=== PATIENT | female | born 1970 | race Caucasian/White ===

== ENCOUNTER 2020-04-05 09:37 | Inpatient (IN) | payer OTHER, SELFPAY ==
[~2020-04-05] VITALS: Ht 157.5 cm; Wt 89.4 kg
[2020-04-05 09:37] VITALS: Ht 157.5 cm; Wt 89.4 kg
--- NOTE | 2020-04-05 10:03 | NUR ---
PT BIB SELF C/C BODY ACHES COUGH ABD PAIN WITH N/V STS CRAMPING ALL OVER AWAITING FOR DR RICK PAINTER
--- NOTE | 2020-04-05 10:21 | NUR ---
DR LEDEZMA AT BEDSIDE TO [facility]
--- NOTE | 2020-04-05 10:22 | NUR ---
PLEASE ENTER FULL NAMES OF BIOMEDICAL MANAGER/RN Patient data collected by (BIOMEDICAL MANAGER): ADONIS MITCHELL Assessment reviewed and completed by (RN): SANJUANA VÁSQUEZ
--- NOTE | 2020-04-05 10:47 | NUR ---
XRAY AT BEDSIDE
[2020-04-05 11:14] LABS: CALCIUM 9.2 mg/dL (8.5-10.1); CARBON DIOXIDE 27.9 mmol/L (21-32); CHLORIDE SERUM 104 mmol/L (98-107); CREATININE SERUM 0.9 mg/dL (0.6-1.0); GFR1 > 60 mL/min; GLUCOSE SERUM 92 mg/dL (74-106); POTASSIUM SERUM 3.7 mmol/L (3.5-5.1); SODIUM SERUM 142 mmol/L (136-145)
[2020-04-05 11:17] LABS: ALBUMIN 3.8 g/dL (3.4-5.0); ALKALINE PHOSPHATASE 110 U/L (46-116); ALT/SGPT 31 U/L (14-59); AST/SGOT 25 U/L (15-37); BILIRUBIN TOTAL 0.62 mg/dL (0.20-1.00); C REACTIVE PROTEIN 3.8 mg/dL (<=0.9); LACTIC DEHYDROGENASE (LDH) 228 U/L (100-190)
[2020-04-05 11:18] LABS: TOTAL PROTEIN, SERUM 8.5 g/dL (6.4-8.2)
[2020-04-05] MEDS ORDERED: HORIZANT300 MG PO (12:04)
[2020-04-05] MEDS ORDERED: ROBAXIN-750750 MG PO (12:04)
[2020-04-05 12:15] LABS: UA SPECIFIC GRAVITY >=1.030 (1.005-1.035); microscopic required? YES; urine erythrocyte NEGATIVE (NEGATIVE)
[2020-04-05 12:33] LABS: PLATELET COUNT 284 x10^3mcL (130-400)
[2020-04-05 12:34] LABS: BASOPHIL % 0.3 % (0-2)
[2020-04-05 13:26] LABS: MAGNESIUM 2.1 mg/dL (1.8-2.4)
[2020-04-05 13:27] LABS: CHOLESTEROL/HDL RATIO 2.6
[2020-04-05 13:30] LABS: FREE T4 0.94 ng/dL (0.76-1.46); T3 TOTAL 0.96 ng/mL; T4(THYROXINE) 7.1 ug/dL (4.7-13.3)
--- NOTE | 2020-04-05 14:10 | NUR ---
PT ADMIT TO TELE ROOM 203B GAVE REPORT TO DAX
[2020-04-05 16:59] VITALS: BP 115/82
--- NOTE | 2020-04-05 19:29 | NUR ---
DID NOT RECEIVE ABX FROM PHARMACY. CALLED 3[facility] AND ALERTED CHARGE NURSE, WHO ALSO CALLED. ADMINISTRATION TIME WAS CHANGED BY PHARMACY TO 2100. WILL BE ADMINISTERED BY NIGHT NURSE. PT WAS IN PAIN 7/10 (HEADACHE) AND WAS GIVEN TYLENOL. TEMP WAS ALSO 99.7. TYLENOL RELIEVED BOTH CONDITIONS. PT DENIED PAIN ON REASSESSMENT. IV EQUIPMENT WITH FLUIDS WERE SET UP FOR IV ABX. FAMILY MEMBER DROPPED OF PHONE POULTRY RAISER AND PERSONAL ITEMS, WHICH WERE GIVEN TO PT. PT CURRENTLY COMFORTABLE. ON RA WITH 96% SAO2. NO ACUTE DISTRESS NOTED. DRY COUGH STILL PRESENT, BUT REPORTED BY PT THAT IT HAD IMPROVED AFTER SOME REST. COVID-19 TEST WAS ADMINISTERED AND DELIVERED TO LAB. SAFETY PRECAUTIONS IN PLACE. ENDORSED TO NIGHT NURSE.
--- NOTE | 2020-04-05 19:41 | NUR ---
CALLED PHARMACY ABOUT THE ZITHROMAX AND ROCEPHIN. PHARMACY WILL RE-TIME MEDICATIONS FOR 2100.
--- NOTE | 2020-04-05 20:08 | NUR ---
REPORT GIVEN FROM DAY RN. AXOX4. BREATHING EVEN ON RA SPO2 97% NO S/S OF DISTRESS OR DISCOMFORT. PT IS HAVING A NON PRODUCTIVE COUGH. GENERAL WEAKNESS. RAC 20G SL PATENT, FLUSHED. TELE 49 NSR AT THIS TIME. HYPO ACTIVE BOWELS. SOFT , NON TENDER ABD. CLEAR SKIN WARM AND DRY. STRONG PEDAL AND RADIAL PULSES. VOIDS FREELY IN THE RESTROOM. BED IN LOW POSIION, SIDERAILS UPX2, CALL LIGHT WITHIN REACH.
[2020-04-05 21:05] VITALS: BP 124/86
--- NOTE | 2020-04-05 23:40 | NUR ---
PT RESTING. EYES CLOSED. AXOX4 NO S/S OF DISTRESS OR DISCOMFORT. BREATHING EVEN ON 2L NC 98% IV ABX TOLERATED. MEDICATIONS GIVEN ORDERED. BED IN LOW POSITION, SIDE RAILS UPX2, CALL LIGHT WITHIN REACH.
--- NOTE | 2020-04-06 01:52 | NUR ---
PT REPORTS SHE IS FEELING BETTER AND WAS ABLE TO SLEEP A LITTLE.
--- NOTE | 2020-04-06 04:35 | NUR ---
PT RESTING, EYES CLOSED. NO S/S OF DISTRESS OR DISCOMFORT. IV C/D/I NO S/S OF INFILTRATION. PT BREATHING EVEN AND UNLABORED ON RA 99% SPO2. TELE 49, NSR NO CP. BED IN LOW POSITION, SIDE RAILS UPX2 CALL LIGHT WITHIN REACH. PT AXOX4.
[2020-04-06 05:15] VITALS: BP 115/77
[2020-04-06 07:08] LABS: BASOPHIL % 0.4 % (0-2); PLATELET COUNT 247 x10^3mcL (130-400)
--- NOTE | 2020-04-06 07:30 | NUR ---
PT IS AA0X4. TELE [address] READING NSR. RESP EVEN AND UNLABORED. LUNG SOUNDS DIMINISHED BILATERAL BASES. ON R/A WITH DRY COUGH NOTED. NO SOB. IV CATH TO RAC S/L, PATENT. SITE WNL. ABDOMEN SOFT, NONTENDER, NONDISTENDED. BOWEL SOUNDS ACTIVE X 4 QUADS. PT HAS C/O OF POOR APPETITE AND GASTRIC DISCOMFORT. WILL CONTINUE TO MONITOR. CALL LIGHT WITHIN REACH. BED IN LOWEST POSITION.
[2020-04-06 07:31] LABS: CALCIUM 8.5 mg/dL (8.5-10.1); CHLORIDE SERUM 108 mmol/L (98-107); CREATININE SERUM 0.7 mg/dL (0.6-1.0); GFR1 > 60 mL/min; GLUCOSE SERUM 79 mg/dL (74-106); POTASSIUM SERUM 4.3 mmol/L (3.5-5.1); SODIUM SERUM 144 mmol/L (136-145)
[2020-04-06 10:12] VITALS: BP 108/78
--- NOTE | 2020-04-06 11:15 | NUR ---
SCHEDULED MEDS GIVEN AND TOLERATED WELL. TYLENOL PO PRN GIVEN FOR NON RADIATING C/P. PT REPOSITIONED FOR COMFORT. WILL CONTINUE TO MONITOR.
--- NOTE | 2020-04-06 13:00 | NUR ---
PT SITTING UP AT BEDSIDE EATING LUNCH. NO RESP DISTRESS NOTED. CALL LIGHT WITHIN REACH. DENIES PAIN. 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
--- NOTE | 2020-04-06 14:05 | NUR ---
PT RESTING IN BED. NO RESP DISTRESS NOTED. DENIES PAIN. CALL LIGHT WITHIN REACH.
[2020-04-06 14:09] VITALS: BP 126/76
[2020-04-06 16:48] VITALS: BP 129/78
[2020-04-06 17:29] VITALS: BP 129/78
--- NOTE | 2020-04-06 17:51 | NUR ---
PT TRANSFERRED TO COVID UNIT AT THIS TIME ROOM 203B TO ROOM 225B.
--- NOTE | 2020-04-06 19:00 | NUR ---
PT IS AAOX4. TELE [address] READING NSR. RESP EVEN AND UNLABORED. ON R/A WITH DRY COUGH NOTED. IV CATH TO RAC PATENT, SITE WNL. DENIES PAIN. WILL ENDORSE ALL CARE TO NOC RN. BED IN LOWEST POSTION. CALL LIGHT WITHIN REACH. SIDE RAILS UP X2.
--- NOTE | 2020-04-06 19:38 | NUR ---
RECIVED PT FROM AM NURSE. CALLED INTO ROOM. PT HAS NO NEEDS AT THIS TIME. WILL FOLLOW UP WITH PM ASSESSMENT AND MEDS.
--- NOTE | 2020-04-06 21:28 | NUR ---
PT TOLERATED MEDS WELL. PT REFUSED COLACE STATING SHE ALREADY HAS DIARRHEA AND DOES NOT WANT A STOOL SOFTENER. PT IS ON ROOM AIR AND DENIES SOB. PT HAS NO OTHER NEEDS AT THIS TIME AND HAS CALL LIGHT IN REACH. IV PATENT AND NO SIGNS OF REDNESS OR SWELLING.
[2020-04-06 21:43] VITALS: BP 117/75
--- NOTE | 2020-04-07 01:30 | NUR ---
ADMINISTERED ROBITUSSIN PO TO PATIENT FOR COUGH. PT TOLERATED WELL. PT ON ROOM AIR, DENIES SOB AND DIFFICULTY BREATHING. WILL CONTINUE TO MONITOR.
--- NOTE | 2020-04-07 06:02 | NUR ---
PT SLEPT IN INTERVALS THROUGHOUT THE NIGHT. PT REPORTED HEADACHE THIS AM AND WAS MEDICATED PER EMAR. PT ALSO REPORTED INCREASED COUGHING DURING THE NIGHT AND REQUESTED COUGH MEDICINE. RESIDENT WAS NOTIFIED AND ROBITUSSIN PO WAS OBTAINED AND ADMINISTERED. PT HAS BEEN LAYING PRONE TOLERATED AND IS STILL ON ROOM AIR. PT DENIES SOB AND DIFFICULTY BREATHING. PT INSTRUCTED TO ALERT NURSE IF BECOMING SOB. PT HAS CALL LIGHT IN REACH, WILL ENDORSE CARE TO AM NURSE.
[2020-04-07 06:56] VITALS: BP 139/104
[2020-04-07 07:00] LABS: CALCIUM 8.9 mg/dL (8.5-10.1); CARBON DIOXIDE 27.8 mmol/L (21-32); CHLORIDE SERUM 108 mmol/L (98-107); CREATININE SERUM 0.7 mg/dL (0.6-1.0); GFR1 > 60 mL/min; GLUCOSE SERUM 84 mg/dL (74-106); POTASSIUM SERUM 3.7 mmol/L (3.5-5.1); SODIUM SERUM 146 mmol/L (136-145)
--- NOTE | 2020-04-07 07:30 | NUR ---
PT IS AAOX4. TELE [address] READING NSR. RESP EVEN, SHALLOW, UNLABORED. LUNG SOUNDS DIMINISHED BILATERAL BASES. ON R/A. DRY COUGH NOTED. IV CATH TO RAC FLUSHED AND PATENT. SITE WNL. DENIES PAIN. NO DISTRESS NOTED. CALL LIGHT WITHIN REACH. BED IN LOWEST POSITION. DROPLET PRECAUTIONS WILL BE MAINTAINED THROUGH OUT THE DAY.
[2020-04-07 07:54] LABS: C REACTIVE PROTEIN 3.7 mg/dL (<=0.9)
[2020-04-07 07:59] LABS: BASOPHIL % 0.4 % (0-2); PLATELET COUNT 272 x10^3mcL (130-400)
[2020-04-07 08:02] LABS: RED CELL DISTRIBUTION WIDTH 15.2 % (11.5-14.5)
--- NOTE | 2020-04-07 08:12 | NUR ---
ROBITUSSIN PO PRN GIVEN FOR DRY, NONPRODUCTIVE COUGH. HEPARIN SQ GIVEN TO LUQ. SITE WNL. DECADRON IVP GIVEN. MEDICATIONS TOLERATED WELL. RESP EQUAL AND UNLABORED. DENIES PAIN. CALL LIGHT WITHIN REACH. DROPLET PRECAUTIONS MAINTAINED.
[2020-04-07] MEDS ORDERED: ZITHROMAX TRI-500 MG PO (09:27)
[2020-04-07] MEDS ORDERED: MEDROL DOSEPAK4 MG PO (09:27)
[2020-04-07] MEDS ORDERED: ELIQUIS5 MG PO (09:28)
[2020-04-07] MEDS ORDERED: GUAIFENESI100 MG/5 M PO (09:37)
[2020-04-07 09:51] VITALS: BP 110/74
[2020-04-07 10:32] VITALS: BP 110/74
--- NOTE | 2020-04-07 11:55 | NUR ---
PT DISCHARGED TO HOME IN NO DISTRESS. DISCHARGE INSTRUCTIONS REVIEWED. ALL QUESTIONS AND CONCERNS ADDRESS. PT INFORMED THAT ALL PRESCRIPTIONS ORDERED HAVE BEEN SENT TO THE PT'S INDICATED PHARMACY. TELE 49 REMOVED AND GIVEN TO POWER DISTRIBUTION ENGINEER. IV CATH TO RAC REMOVED INTACT. SITE WNL. COVERED WITH CDI DRESSING. PT DENIES PAIN UPON DISCHARGE, V/S WNL. PT TOOK ALL PERSONAL BELONGINGS. PT TAKEN TO LOBBY IN W/C ACCOMPAINED BY THIS RN.
== END 2020-04-07 11:44 | disposition home or self-care (01) | DRG 871 ==
LOC: ED 09:37 → DU 12:06
PROVIDERS: Emergency Medicine; ADMIT Internal Medicine; ATTEND Internal Medicine
DX: A41.9 Sepsis, unspecified organism (principal); U07.1 COVID-19; J12.89 Other viral pneumonia; J96.01 Acute respiratory failure with hypoxia; N17.0 Acute kidney failure with tubular necrosis; Z88.5 Allergy status to narcotic agent; Z88.8 Allergy status to other drugs, medicaments and biological substances
CPT/HCPCS: 36600; 83880; 84439; 87804; G0378; J0456; J0696; J1100; J1644; J2405; J7030; J7060; Q0092; U0003-CS

== ENCOUNTER 2020-04-23 16:15 | Emergency (ER) | payer OTHER, SELFPAY ==
[~2020-04-23] VITALS: Ht 157.5 cm; Wt 90.7 kg
[~2020-04-23 16:15] MED LIST: ELIQUIS5 MG PO; GUAIFENESI100 MG/5 M PO; HORIZANT300 MG PO; MEDROL DOSEPAK4 MG PO; ROBAXIN-750750 MG PO; ZITHROMAX TRI-500 MG PO
[2020-04-23 16:17] VITALS: Ht 157.5 cm; Wt 90.7 kg
[2020-04-23 19:59] VITALS: BP 124/84
== END 2020-04-23 19:59 | disposition home or self-care (01) ==
LOC: ED 16:15
DX: M79.661 Pain in right lower leg (principal); R25.2 Cramp and spasm; Z98.84 Bariatric surgery status; Z88.5 Allergy status to narcotic agent; Z88.8 Allergy status to other drugs, medicaments and biological substances
CPT/HCPCS: Q0092

== ENCOUNTER 2020-08-30 13:09 | Emergency (ER) | payer OTHER, SELFPAY ==
[~2020-08-30] VITALS: Ht 152.4 cm; Wt 90.7 kg
[2020-08-30 13:19] VITALS: Ht 152.4 cm; Wt 90.7 kg
[2020-08-30 15:33] LABS: BASOPHIL % 0.7 % (0.2-1.3)
[2020-08-30 15:37] LABS: RED CELL DISTRIBUTION WIDTH 15.3 % (12.3-17.7)
[2020-08-30 15:38] LABS: PLATELET COUNT 543 x10^3mcL (179-408)
[2020-08-30 15:39] LABS: rbc morphology (normal/abnorm) NORMAL (NORMAL)
[2020-08-30 15:56] LABS: CALCIUM 9.3 mg/dL (8.5-10.1); CARBON DIOXIDE 25.7 mmol/L (21-32); CHLORIDE SERUM 105 mmol/L (98-107); CREATININE SERUM 0.8 mg/dL (0.6-1.0); GFR1 > 60 mL/min; GLUCOSE SERUM 115 mg/dL (74-106); POTASSIUM SERUM 4.4 mmol/L (3.5-5.1); SODIUM SERUM 142 mmol/L (136-145)
[2020-08-30 16:01] LABS: ALBUMIN 3.7 g/dL (3.4-5.0); ALKALINE PHOSPHATASE 115 U/L (46-116); ALT/SGPT 30 U/L (14-59); AST/SGOT 20 U/L (15-37); BILIRUBIN TOTAL 0.54 mg/dL (0.20-1.00)
[2020-08-30 16:05] LABS: TOTAL PROTEIN, SERUM 8.3 g/dL (6.4-8.2)
[2020-08-30 20:10] VITALS: BP 111/71
== END 2020-08-30 20:10 | disposition home or self-care (01) ==
LOC: ED 13:09
PROVIDERS: Emergency Medicine
DX: R05 Cough (principal); R09.89 Other specified symptoms and signs involving the circulatory and respiratory systems; R06.02 Shortness of breath; Z88.5 Allergy status to narcotic agent; Z88.8 Allergy status to other drugs, medicaments and biological substances; Z98.890 Other specified postprocedural states
CPT/HCPCS: 85378; J1200; Q9967